=== PATIENT | female | born 1990 | race Two or more races ===

== ENCOUNTER 2018-01-23 20:57 | Emergency (ER) | payer SELFPAY ==
[~2018-01-23] VITALS: Ht 160 cm; Wt 81.6 kg
[2018-01-24 00:08] VITALS: BP 122/82
[2018-01-24] MEDS ORDERED: PHENAZOPYRIDINE HCL 100 MG TAB PO ONE (01:15)
[2018-01-24] MEDS ORDERED: cefTRIAXone SOD 1,000 MG VL IM ONE (01:15)
[2018-01-24] MEDS ORDERED: LIDOCAINE 1% (LOCAL ANESTH.) PF 5ml SDV ONE (01:20)
[2018-01-24] MEDS ORDERED: LIDOCAINE 1% HCL (LOCAL ANESTH.) INJ 20ML MDV IJ ONE (02:15)
== END 2018-01-24 01:30 | disposition home or self-care (01) ==
LOC: ER 21:18
DX: N39.0 Urinary tract infection, site not specified (principal); M79.1 Myalgia
CPT/HCPCS: 72131; 96372; 99284; J0696

== ENCOUNTER 2018-11-24 12:23 | Inpatient (IN) | payer MEDICAID | END 2018-11-28 09:25 | disposition home or self-care (01) | LOC: LDRP 12:23 | DX: O13.3 Gestational [pregnancy-induced] hypertension without significant proteinuria, third trimester (principal); J81.1 Chronic pulmonary edema; O60.03 Preterm labor without delivery, third trimester; Z3A.35 35 weeks gestation of pregnancy ==

== ENCOUNTER 2018-12-09 14:20 | Observation (INO) | payer MEDICAID ==
[~2018-12-09] VITALS: Ht 160 cm; Wt 90.7 kg
[~2018-12-09 14:20] MED LIST: PREN-96 PO
[2018-12-09] MEDS ORDERED: BISACODYL 10 MG RECT SUPP PR PRN (16:15)
== END 2018-12-09 16:40 | disposition home or self-care (01) | DRG 566 ==
LOC: LDRP 14:20
PROVIDERS: ADMIT Obstetrics & Gynecology; ATTEND Obstetrics & Gynecology
DX: O62.9 Abnormality of forces of labor, unspecified (principal); Z3A.37 37 weeks gestation of pregnancy
CPT/HCPCS: 59025; 81002; G0378

== ENCOUNTER 2023-09-08 00:40 | Emergency (ER) | payer MEDICAID ==
[~2023-09-08] VITALS: Ht 160 cm; Wt 94.0 kg
[~2023-09-08 00:40] MED LIST changes: +ACET-1881 PO
[2023-09-08 02:15] LABS: Basophils # (auto) 0 10 ^3/uL (0-0.2); Basophils % (auto) 0.5 % (0.0-2.0); Eosinophils # (auto) 0.2 10 ^3/uL (0-0.8); Eosinophils % (auto) 2.3 % (0.0-7.0); Hematocrit 38.8 % (36.0-46.0); Hemoglobin 12.8 g/dL (12.2-16.2); Lymphocytes # (auto) 2.3 10 ^3/uL (0.4-5.4); Lymphocytes % (auto) 28.1 % (10.0-50.0); Mean Corpuscular Hemoglobin 28.5 pg (28.0-32.0); Mean Corpuscular Volume 86.2 fL (80.0-100.0); Monocytes # (auto) 0.7 10 ^3/uL (0-1.3); Neutrophils # (auto) 4.8 10 ^3/uL (1.6-8.6); Neutrophils % (auto) 60.1 % (37.0-80.0); Nucleated Red Blood Cells % 0.1 %; Red Cell Distribution Width 13.8 % (11.8-14.3)
[2023-09-08 02:32] LABS: Urine Bacteria FEW /hpf (None Seen); Urine Blood Negative /uL (Negative); Urine Clarity Clear (Clear); Urine Color Light-Yellow (Yellow); Urine Protein, UAD Negative (Negative); Urine Specific Gravity 1.017 (1.001-1.035); Urine Urobilinogen Normal (Negative); Urine WBC 2 /hpf (0 - 5); Urine pH 5.5 (5.0-9.0)
[2023-09-08 02:39] LABS: Alanine Aminotransferase 25 U/L (7-40); Albumin 4.6 g/dL (3.2-4.8); Alkaline Phosphatase 93 U/L (46-116); Anion Gap 8 (5-15); Aspartate Aminotransferase 20 U/L (13-40); BUN/Creatinine Ratio 14.5 (10.0-20.0); Bilirubin, Total 0.3 mg/dL (0.2-1.0); Blood Urea Nitrogen 12 mg/dL (9-23); Calcium 9.3 mg/dL (8.7-10.4); Carbon Dioxide 23 mmol/L (20-30); Chloride 106 mmol/L (98-107); Glucose 155 mg/dL (74-106); Potassium 3.6 mmol/L (3.5-5.1); Sodium 137 mmol/L (136-145); Total Protein 7.9 g/dL (5.7-8.2)
[2023-09-08] MEDS ORDERED: CEPH500C PO (05:59)
[2023-09-08 06:33] VITALS: BP 151/74; PULSE 51; RESP 18; TEMP 98.4; O2SAT 100
== END 2023-09-08 07:27 | disposition home or self-care (01) ==
LOC: ER 00:40
DX: R10.9 Unspecified abdominal pain (principal); E11.9 Type 2 diabetes mellitus without complications; Z90.49 Acquired absence of other specified parts of digestive tract; Z32.02 Encounter for pregnancy test, result negative
CPT/HCPCS: 36415; 74176; 80053; 81001; 81025; 85025

== ENCOUNTER 2025-03-10 09:19 | Emergency (ER) | payer MEDICAID ==
[~2025-03-10] VITALS: Ht 160 cm; Wt 91.8 kg
[~2025-03-10 09:19] MED LIST changes: +CEPH500C PO
[2025-03-10 09:21] VITALS: BP 157/89; PULSE 96; RESP 19; TEMP 97.1; O2SAT 99
--- NOTE | 2025-03-10 09:57 | ED.PDOC ---
PIPE COVERER HPI Comments A 34 YEAR OLD FEMALE PRESENTS TO THE ED WITH COMPLAINT OF PELVIC PAIN. PATIENT REPORTS THAT SHE HAS BEEN EXPERIENCING LEFT SIDED PELVIC PAIN WITH ASSOCIATED NAUSEA FOR THE PAST WEEK. PATIENT RELAYS THAT SHE WAS TOLD BY AN URGENT CARE RECENTLY THAT SHE IS CURRENTLY . PATIENT STATES HER LMP WAS ON 02/02. PATIENT DENIES VAGINAL BLEEDING, SHORTNESS OF BREATH, CHEST PAIN, ABDOMINAL PAIN, NAUSEA, VOMITING, HEADACHE, OR OTHER COMPLAINTS. NO OTHER SYMPTOMS OR MODIFYING FACTORS AT THIS TIME. PATIENT IS ALERT, ORIENTED X 4, AND HAS STEADY GAIT. Chief Complaint: Pelvic Pain Time Seen by MD: 09:56 Reviewed Notes: Nurses Notes, Medications, Allergies Allergies: Coded Allergies: NO KNOWN ALLERGIES (Unverified , 01/23/18) Home Meds Active Scripts Cephalexin Monohydrate (Cephalexin) 500 Mg Cap, 1 CAP PO QID for 10 Days, #40 CAP Prov:BALDEMAR WRIGHT MD 09/08/23 Reported Medications Acetaminophen (Acetaminophen) 325 Mg Tab, 325 MG PO Q4HP PRN for MILD PAIN for 30 Days, MG 0 Refills 12/15/18 Vit W/ Ferrous Fumara ( One Daily) Daily Tab, 1 TAB PO DAILY, #90 TAB 3 Refills 11/26/18 Information Source: Patient Mode of Arrival: Ambulatory Timing: Weeks Prehospital treatment: None Severity: Mild, Moderate Vaginal Discharge: None Vaginal Lesions: None Vaginal Mass: None Onset Of Mass/Bleeding: Unknown Sexual Activity: Last Consensual [place]: Unknown History of: Current Symptoms of Possible : None Associated Signs and Symptoms: Abdominal Pain (LEFT PELVIC ), Cramping Past Medical History PAST MEDICAL HISTORY: Thyroid Surgical History: Cholecystectomy PULP TESTER History: No Pertinent PULP TESTER History Family History Family History: Unknown Social History Smoker: Non-Smoker Alcohol: Denies ETOH Use Drugs: Denies Drug Use Lives In: Home Constitutional: denies: chills, diaphoresis, fatigue, fever, malaise, sweats, weakness, others EENTM: denies: blurred vision, double vision, ear bleeding, ear discharge, ear drainage, ear pain, ear ringing, eye pain, eye redness, hearing loss, mouth pain, mouth swelling, nasal discharge, nose bleeding, nose congestion, nose pain, photophobia, tearing, throat pain, throat swelling, voice changes, others Respiratory: denies: cough, hemoptysis, orthopnea, SOB at rest, shortness of breath, SOB with excertion, stridor, wheezing, others Cardiovascular: denies: chest pain, dizzy spells, diaphoresis, Dyspnea on exertion, edema, irregular heart beat, left arm pain, lightheadedness, palpitations, PND, syncope, others Gastrointestinal: reports: nausea, others (PELVIC PAIN); denies: abdomen distended, abdominal pain, blood streaked bowels, constipated, diarrhea, dysphagia, difficulty swallowing, hematemesis, melena, poor appetite, poor fluid intake, rectal bleeding, rectal pain, vomiting Genitourinary: reports: ; denies: abnormal vagina bleeding, burning, dyspareunia, dysuria, flank pain, frequency, hematuria, incontinence, pain, vagina discharge, urgency, others Neurological: denies: dizziness, fainting, headache, left sided numbness, left sided weakness, numbness, paresthesia, pre-existing deficit, right sided numbness, right sided weakness, seizure, speech problems, tingling, tremors, weakness, others Musculoskeletal: denies: back pain, gout, joint pain, joint swelling, muscle pain, muscle stiffness, neck pain, others Integumetry: denies: bruises, change in color, change in hair/nails, dryness, laceration, lesions, lumps, rash, wounds, others Allergic/Immunocompromised: denies: Difficulty Healing, Frequent Infections, Hives, Itching, others Hematologic/Lymphatic: denies: anemia, blood clots, easy bleeding, easy bruising, swollen glands, others Endocrine: denies: excessive hunger, excessive sweating, excessive thirst, excessive urination, flushing, intolerance to cold, intolerance to heat, unexplained weight gain, unexplained weight loss, others Psychiatric: denies: anxiety, bipolar disorder, depression, hopeless, panic disorder, schizophrenia, sleepless, suicidal, others All Other Systems: Reviewed and Negative Physical Exam General Appearance: No Apparent Distress, Normal HEENT: Normal ENT Inspection, PERRL/EOMI, Pharynx Normal, TMs Normal Neck: Full Range of Motion, Non-Tender, Normal, Normal Inspection Respiratory: Chest Non-Tender, Lungs Clear, No Accessory Muscle Use, No Respiratory Distress, Normal Breath Sounds Cardiovascular: No Edema, No JVD, No Murmur, No Gallop, Normal Peripheral Pulses, Regular Rate/Rhythm Breast Exam: Deferred Gastrointestinal: No Organomegaly, Non Tender, No Pulsatile Mass, Normal Bowel Sounds, Soft Genitalia: Deferred Pelvic: Normal External Exam, Tender Adnexa (TENDERNESS ON LEFT PELVIC, NO GUARDING AND REBOUND TENDERNESS. ) Rectal: Deferred Extremities: No calf tenderness, Normal capillary refill, Normal inspection, Normal range of motion, Non-tender, No pedal edema Musculoskeletal : Apperance: Normal Neurologic: Alert, venue coordinator II-XII nml as Tested, No Motor Deficits, Normal Affect, Normal Mood, No Sensory Deficits Cerebellar Function: Normal Reflexes: Normal Skin: Dry, Normal Color, Warm Peripheral Pulses: 2+ carotid (R), 2+ carotid (L), 2+ Radial (R), 2+ Radial (L) Lymphatic: No Adenopathy Was a procedure done? Was a procedure done?: No Differential Diagnosis (PULP TESTER) Vaginal Bleeding: - Threatened, Ectopic Vaginal Discharge: , UTI X-Ray, Labs, Meds, VS Vital Signs Date Time Temp Pulse Resp B/P (MAP) Pulse Ox O2 Delivery O2 Flow Rate FiO2 03/10/25 09:21 97.1 96 19 157/89 99 97.1 Lab Test 03/10/25 09:42 Range/Units White Blood Count 6.0 4.4-10.8 10^3/uL Red Blood Count 4.67 4.0-5.20 10^6/uL Hemoglobin 13.4 12.2-16.2 g/dL Hematocrit 40.3 36.0-46.0 % Mean Corpuscular Volume 86.2 80.0-100.0 fL Mean Corpuscular Hemoglobin 28.8 28.0-32.0 pg Mean Corpuscular Hemoglobin Concent 33.4 32.0-36.0 g/dL Red Cell Distribution Width 14.0 11.8-14.3 % Platelet Count 238 140-450 10^3/uL Mean Platelet Volume 8.6 6.9-10.8 fL Neutrophils (%) (Auto) 57.9 37.0-80.0 % Lymphocytes (%) (Auto) 31.5 10.0-50.0 % Monocytes (%) (Auto) 9.4 0.0-12.0 % Eosinophils (%) (Auto) 0.8 0.0-7.0 % Basophils (%) (Auto) 0.4 0.0-2.0 % Neutrophils # (Auto) 3.5 1.6-8.6 10 ^3/uL Lymphocytes # (Auto) 1.9 0.4-5.4 10 ^3/uL Monocytes # (Auto) 0.6 0-1.3 10 ^3/uL Eosinophils # (Auto) 0 0-0.8 10 ^3/uL Basophils # (Auto) 0 0-0.2 10 ^3/uL Nucleated Red Blood Cells 0.1 % Beta HCG, Quantitative 386.1 H 1.5-4.2 mIU/mL [facility] [id number] [place] [address] Ph: [phone] DIAGNOSTIC IMAGING Diagnostic Imaging Report : [id number] Signed PATIENT: KYM FELIX ACCT: [id number] UNIT: [id number] : 1990 LOC: ER ROOM / BED: / AGE / SEX: 34 / F ADM STATUS: REG ER SERVICE 1029 ORDERING PHYSICIAN: YESICA MARTINEZ PROCEDURE(s): OB4US - OB ULTRASOUND COMP LESS 14WKS REASON: LEFT PELVIC PAIN, BETA-HC, R/O ATOPIC ORDER NUMBER(s): [id number], ACCESSION NUMBER(s): [id number] US OB ULTRASOUND COMP LESS 14WKS HISTORY: LEFT PELVIC PAIN, BETA-HC, R/O ATOPIC COMPARISON: US OB TRANS VAGINAL US on DOS: 03/10/25, OB ULTRASOUND COMP GTR 14 WKS on DOS: 11/24/18 TECHNIQUE: Transabdominal and transvaginal images with color doppler were obtained of the pelvis. FINDINGS: Uterus: - Measures 11.4 x 5.3 x 7.0 cm in length. - Mass lesions: None - Intrauterine : Not visualized. - Gestational sac: Not visualized. - Yolk sac: Not visualized. - Embryonic pole: Not visualized. - Endometrium: 2.3 cm. Right ovary: - Measures 4.2 x 2.3 x 2.7 cm - Vascularity: Normal flow on Doppler images. - Mass lesions: None Left ovary: - Measures 6.1 x 2.8 x 4.1 cm - Vascularity: Normal flow on Doppler images. - Mass lesions: 1.9 x 1.8 x 2.2 cm complex heterogeneous lesion in the left ovary with peripheral vascularity. 3.2 x 2.4 x 2.6 cm cyst. Free fluid: Yes Other: None IMPRESSION: 1.9 x 1.8 x 2.2 cm complex heterogeneous lesion in the left ovary with peripheral vascularity. This could be a left ovarian ectopic vs a corpus luteal cyst. Reccommend PIPE COVERER consultation. No live intrauterine visualized. ATED BY: KVNG AMEZCUA MD DICTATED DATE/TIME: 03/10/251111 SIGNED BY: KVNG AMEZCUA MD SIGNED DATE/TIME: 03/10/251111 CC: X-Ray, Labs, Meds, VS Comment EXTERNAL MEDICAL RECORDS REVIEWED: [NONE] INDEPENDENT HISTORIANS: [NONE] SOCIAL DETERMINANTS OF HEALTH: [NONE] LABS ORDERED: CBC, UA, BHCG QUANT, PREG URINE REVIEWED AND INTERPRETED RESULTS: BETA-HC IMAGING ORDERED: NONE TREATMENTS ORDERED: NONE PROCEDURES PERFORMED: NONE CRITICAL CARE TIME: NONE 1135: CONSULTED WITH DR. PARRA PIPE COVERER REGARDING THE PATIENT CASE AND SHE ADVISED THAT SHE WILL SPEAK WITH THE WOOD COATER WHO PERFORMED THE US. 1140: DR. PARRA REPORTS THAT THE PATIENT DOES NOT HAVE AN ECTOPIC AND HER US SHOWS A CORPUS LUTEAL CYST. DR. PARRA ADVISES THAT THE PATIENT RETURN IN 2 DAYS TO THE ED FOR REPEAT US AND BHCG QUANT. I HAVE DISCUSSED THE PATIENT WITH THE ATTENDING PHYSICIAN, DR. RUTH, HE AGREES WITH THE PATIENT'S PLAN OF CARE AND DISPOSITION. BASED ON HISTORY OF PRESENT ILLNESS, AND PHYSICAL EXAM, PATIENT WILL BE DISCHARGED HOME. DISCUSSED PLAN FOR DISCHARGE HOME. SHARED DECISION MAKING: DISCUSSED WITH PATIENT THAT THEIR WORKUP WAS NORMAL. PATIENT INSTRUCTED TO FOLLOW UP WITH ER/PRIMARY CARE PROVIDER IN 1-2 DAYS FOR RE-EVALUATION OF SYMPTOMS. PATIENT VERBALIZES UNDERSTANDING TO RETURN TO ED FOR NEW OR WORSENING SYMPTOMS OR IF FOLLOW UP WITH PCP CANNOT BE OBTAINED. PATIENT FEELS COMFORTABLE GOING HOME AT THIS TIME. ALL QUESTIONS ADDRESSED AT TIME OF DISCHARGE. Time of 1ST Reevaluation: 12:30 Reevaluation 1ST: Improved Patient Education/Counseling: Diagnosis, Treatment, Need For Follow Up Family Education/Counseling: Diagnosis, Treatment, Need For Follow Up Medical Screening: No EMC Exist At This Time Departure 1 Departure Time of Disposition: 12:30 Impression: Primary Impression: Pelvic pain Additional Impressions: Corpus luteum cyst Positive blood test Disposition: HOME / SELF CARE / HOMELESS Condition: Stable Additional Instructions: FOLLOW-UP WITH THE ED IN 2 DAYS FOR RE-CHECK OF BHCG LEVELS AND US. RETURN TO ED FOR ANY NEW OR WORSENING SYMPTOMS. Discharged With: Self, Relative Critical Care Note Critical Care Time?: No Stability Stability form required: No Heart Score Heart Score: Heart Score Response (Comments) Value History N/A 0 EKG N/A 0 Age N/A 0 Risk Factors N/A 0 Troponin N/A 0 Total 0 I personally scribed for YESICA MARTINEZ ([email or web address]) on 03/10/25 at 09:57. Electronically submitted by Cruz Smith ([email or web address]). I personally scribed for YESICA MARTINEZ ([email or web address]) on 03/10/25 at 11:27. Electronically submitted by Cruz Smith ([email or web address]). I personally scribed for YESICA MARTINEZ ([email or web address]) on 03/10/25 at 11:36. Electronically submitted by Cruz Smith ([email or web address]). I personally scribed for YESICA MARTINEZ ([email or web address]) on 03/10/25 at 11:41. Electronically submitted by Cruz Smith ([email or web address]). YESICA MARTINEZ Mar 10, 2025 09:57
[2025-03-10 09:58] LABS: Hematocrit 40.3 % (36.0-46.0); Hemoglobin 13.4 g/dL (12.2-16.2); Mean Corpuscular Hemoglobin 28.8 pg (28.0-32.0); Mean Corpuscular Volume 86.2 fL (80.0-100.0); Nucleated Red Blood Cells % 0.1 %
--- NOTE | 2025-03-10 11:14 | DVH ---
US OB ULTRASOUND COMP LESS 14WKS HISTORY: LEFT PELVIC PAIN, BETA-HC, R/O ATOPIC COMPARISON: US OB TRANS VAGINAL US on DOS: 03/10/25, OB ULTRASOUND COMP GTR 14 WKS on DOS: 11/24/18 TECHNIQUE: Transabdominal and transvaginal images with color doppler were obtained of the pelvis. FINDINGS: Uterus: - Measures 11.4 x 5.3 x 7.0 cm in length. - Mass lesions: None - Intrauterine : Not visualized. - Gestational sac: Not visualized. - Yolk sac: Not visualized. - Embryonic pole: Not visualized. - Endometrium: 2.3 cm. Right ovary: - Measures 4.2 x 2.3 x 2.7 cm - Vascularity: Normal flow on Doppler images. - Mass lesions: None Left ovary: - Measures 6.1 x 2.8 x 4.1 cm - Vascularity: Normal flow on Doppler images. - Mass lesions: 1.9 x 1.8 x 2.2 cm complex heterogeneous lesion in the left ovary with peripheral vas cularity. 3.2 x 2.4 x 2.6 cm cyst. Free fluid: Yes Other: None IMPRESSION: 1.9 x 1.8 x 2.2 cm complex heterogeneous lesion in the left ovary with peripheral vascularity. This c ould be a left ovarian ectopic vs a corpus luteal cyst. Reccommend CERTIFIED MEDICAL ASST consultation. No live intrauterine visualized.
[2025-03-10 13:26] LABS: Urine Protein, UAD Negative (Negative)
== END 2025-03-10 13:03 | disposition home or self-care (01) ==
LOC: ER 09:19
DX: O26.899 Other specified pregnancy related conditions, unspecified trimester (principal); N83.10 Corpus luteum cyst of ovary, unspecified side; O26.891 Other specified pregnancy related conditions, first trimester; R10.20 Pelvic and perineal pain unspecified side; E03.9 Hypothyroidism, unspecified; Z79.899 Other long term (current) drug therapy; Z3A.01 Less than 8 weeks gestation of pregnancy; Z90.49 Acquired absence of other specified parts of digestive tract
CPT/HCPCS: 36415; 76801; 76817; 81001; 81025; 84702; 85025

== ENCOUNTER 2025-03-13 17:06 | Emergency (ER) | payer MEDICAID ==
[~2025-03-13] VITALS: Ht 160 cm; Wt 99.9 kg
[2025-03-13 18:51] LABS: Hematocrit 36.5 % (36.0-46.0); Hemoglobin 12.5 g/dL (12.2-16.2); Mean Corpuscular Hemoglobin 29.4 pg (28.0-32.0); Mean Corpuscular Volume 85.7 fL (80.0-100.0); Nucleated Red Blood Cells % 0.0 %
[2025-03-13 19:01] LABS: Alanine Aminotransferase 34 U/L (7-40); Albumin 4.5 g/dL (3.2-4.8); Alkaline Phosphatase 95 U/L (46-116); Anion Gap 9 (5-15); BUN/Creatinine Ratio 11.9 (10.0-20.0); Bilirubin, Total 0.3 mg/dL (0.2-1.0); Blood Urea Nitrogen 10 mg/dL (9-23); Calcium 9.5 mg/dL (8.7-10.4); Carbon Dioxide 25 mmol/L (20-31); Chloride 104 mmol/L (98-107); Glucose 108 mg/dL (74-106); Potassium 3.8 mmol/L (3.5-5.1); Sodium 138 mmol/L (136-145); Total Protein 7.8 g/dL (5.7-8.2)
--- NOTE | 2025-03-13 19:02 | ED.PDOC ---
ORCHARD MANAGER HPI Comments 34-year-old female who came to ER for abdominal pain. Patient is a ap proximately 4-5 weeks . Patient was seen here last March 10, abdominal pain, left lower quadrant. Ultrasound revealed 1.9 x 1.8 x 2.2 cm complex heterogeneous lesion in the left ovary with peripheral vascularity. This could be a left ovarian ectopic vs a corpus luteal cyst. Reccommend ORCHARD MANAGER consultation. No live intrauterine visualized. Patient coming in for repeat bhcg levels and ultrasound Chief Complaint: Abdominal Pain Time Seen by MD: 19:02 Reviewed Notes: Nurses Notes Allergies: Coded Allergies: NO KNOWN ALLERGIES (Unverified , 01/23/18) Home Meds Active Scripts Cephalexin Monohydrate (Cephalexin) 500 Mg Cap, 1 CAP PO QID for 10 Days, #40 CAP Prov:BALDEMAR WRIGHT MD 09/08/23 Reported Medications Acetaminophen (Acetaminophen) 325 Mg Tab, 325 MG PO Q4HP PRN for MILD PAIN for 30 Days, MG 0 Refills 12/15/18 Vit W/ Ferrous Fumara ( One Daily) Daily Tab, 1 TAB PO DAILY, #90 TAB 3 Refills 11/26/18 Information Source: Patient Mode of Arrival: Ambulatory Past Medical History PAST MEDICAL HISTORY: Thyroid Surgical History: Cholecystectomy MEDICAL RESEARCHER History: No Pertinent MEDICAL RESEARCHER History 4 Para 2 Family History Family History: Unknown Social History Smoker: Non-Smoker Alcohol: Denies ETOH Use Drugs: Denies Drug Use Lives In: Home Constitutional: denies: chills, diaphoresis, fatigue, fever, malaise, sweats, weakness, others EENTM: denies: blurred vision, double vision, ear bleeding, ear discharge, ear drainage, ear pain, ear ringing, eye pain, eye redness, hearing loss, mouth pain, mouth swelling, nasal discharge, nose bleeding, nose congestion, nose pain, photophobia, tearing, throat pain, throat swelling, voice changes, others Respiratory: denies: cough, hemoptysis, orthopnea, SOB at rest, shortness of breath, SOB with excertion, stridor, wheezing, others Cardiovascular: denies: chest pain, dizzy spells, diaphoresis, Dyspnea on exertion, edema, irregular heart beat, left arm pain, lightheadedness, palpitations, PND, syncope, others Gastrointestinal: reports: abdominal pain; denies: abdomen distended, blood streaked bowels, constipated, diarrhea, dysphagia, difficulty swallowing, hematemesis, melena, nausea, poor appetite, poor fluid intake, rectal bleeding, rectal pain, vomiting, others Genitourinary: denies: abnormal vagina bleeding, burning, dyspareunia, dysuria, flank pain, frequency, hematuria, incontinence, pain, , vagina discharge, urgency, others Neurological: denies: dizziness, fainting, headache, left sided numbness, left sided weakness, numbness, paresthesia, pre-existing deficit, right sided numbness, right sided weakness, seizure, speech problems, tingling, tremors, weakness, others Musculoskeletal: denies: back pain, gout, joint pain, joint swelling, muscle pain, muscle stiffness, neck pain, others Integumetry: denies: bruises, change in color, change in hair/nails, dryness, laceration, lesions, lumps, rash, wounds, others Allergic/Immunocompromised: denies: Difficulty Healing, Frequent Infections, Hives, Itching, others Hematologic/Lymphatic: denies: anemia, blood clots, easy bleeding, easy bruising, swollen glands, others Endocrine: denies: excessive hunger, excessive sweating, excessive thirst, excessive urination, flushing, intolerance to cold, intolerance to heat, unexplained weight gain, unexplained weight loss, others Psychiatric: denies: anxiety, bipolar disorder, depression, hopeless, panic disorder, schizophrenia, sleepless, suicidal, others Physical Exam General Appearance: No Apparent Distress, Normal HEENT: Normal ENT Inspection, Pharynx Normal, TMs Normal Neck: Full Range of Motion, Non-Tender, Normal, Normal Inspection Respiratory: Chest Non-Tender, Lungs Clear, No Accessory Muscle Use, No Respiratory Distress, Normal Breath Sounds Cardiovascular: No Edema, No JVD, No Murmur, No Gallop, Normal Peripheral Pulses, Regular Rate/Rhythm Breast Exam: Deferred Gastrointestinal: LLQ, No Organomegaly, No Pulsatile Mass, Normal Bowel Sounds, Soft, Tenderness Genitalia: Deferred Pelvic: Deferred Rectal: Deferred Extremities: No calf tenderness, Normal capillary refill, Normal inspection, Normal range of motion, Non-tender, No pedal edema Musculoskeletal : Apperance: Normal Neurologic: Alert, air pumper II-XII nml as Tested, No Motor Deficits, Normal Affect, Normal Mood, No Sensory Deficits Cerebellar Function: Normal Reflexes: Normal Skin: Dry, Normal Color, Warm Lymphatic: No Adenopathy Was a procedure done? Was a procedure done?: No Differential Diagnosis (MEDICAL RESEARCHER) Vaginal Bleeding: - Missed, - Threatened, Ectopic Vaginal Discharge: X-Ray, Labs, Meds, VS Vital Signs Date Time Temp Pulse Resp B/P (MAP) Pulse Ox O2 Delivery O2 Flow Rate FiO2 03/13/25 22:27 Room Air* 0 21 03/13/25 20:16 99.4 93 18 138/86 (103) 99 99.4 03/13/25 17:08 98.7 96 18 130/92 96 98.7 Lab Test 03/13/25 18:36 03/13/25 18:33 Range/Units White Blood Count 8.4 # 4.4-10.8 10^3/uL Red Blood Count 4.26 4.0-5.20 10^6/uL Hemoglobin 12.5 12.2-16.2 g/dL Hematocrit 36.5 36.0-46.0 % Mean Corpuscular Volume 85.7 80.0-100.0 fL Mean Corpuscular Hemoglobin 29.4 28.0-32.0 pg Mean Corpuscular Hemoglobin Concent 34.3 32.0-36.0 g/dL Red Cell Distribution Width 13.8 11.8-14.3 % Platelet Count 211 140-450 10^3/uL Mean Platelet Volume 8.7 6.9-10.8 fL Neutrophils (%) (Auto) 61.1 37.0-80.0 % Lymphocytes (%) (Auto) 27.8 10.0-50.0 % Monocytes (%) (Auto) 9.9 0.0-12.0 % Eosinophils (%) (Auto) 1.0 0.0-7.0 % Basophils (%) (Auto) 0.2 0.0-2.0 % Neutrophils # (Auto) 5.1 1.6-8.6 10 ^3/uL Lymphocytes # (Auto) 2.3 0.4-5.4 10 ^3/uL Monocytes # (Auto) 0.8 0-1.3 10 ^3/uL Eosinophils # (Auto) 0.1 0-0.8 10 ^3/uL Basophils # (Auto) 0 0-0.2 10 ^3/uL Nucleated Red Blood Cells 0.0 % Sodium Level 138 136-145 mmol/L Potassium Level 3.8 3.5-5.1 mmol/L Chloride Level 104 98-107 mmol/L Carbon Dioxide Level 25 20-31 mmol/L Anion Gap 9 5-15 Blood Urea Nitrogen 10 9-23 mg/dL Creatinine 0.84 0.550-1.02 mg/dL Glomerular Filtration Rate Calc 93 >90 mL/min BUN/Creatinine Ratio 11.9 10.0-20.0 Serum Glucose 108 H 74-106 mg/dL Calcium Level 9.5 8.7-10.4 mg/dL Total Bilirubin 0.3 0.2-1.0 mg/dL Aspartate Amino Transferase (AST) 22 13-40 U/L Alanine Aminotransferase (ALT) 34 7-40 U/L Alkaline Phosphatase 95 46-116 U/L Total Protein 7.8 5.7-8.2 g/dL Albumin 4.5 3.2-4.8 g/dL Beta HCG, Quantitative 917.9 H 1.5-4.2 mIU/mL Urine Color Light-yellow Yellow Urine Clarity Clear Clear Urine pH 6.5 5.0-9.0 Urine Specific [place] 1.022 1.001-1.035 Urine Protein Negative Negative Urine Ketones Negative Negative Urine Blood Negative Negative /uL Urine Nitrite Negative Negative Urine Bilirubin Negative Negative Urine Urobilinogen Normal Negative mg/dL Urine Leukocyte Esterase 3+ Negative /uL Urine RBC 3 0 - 4 /hpf Urine Microscopic WBC 8 H 0-5 /HPF Urine Squamous Epithelial Cells Few <5 /hpf Urine Bacteria None seen None Seen /hpf Urine Mucus Few None Seen Urine Glucose Normal Normal mg/dL Time of 1ST Reevaluation: 19:00 Reevaluation 1ST: Unchanged Consultation: manufactured buildings supervisor (Dr Cota) Patient Education/Counseling: Diagnosis, Treatment Family Education/Counseling: No Family Present Departure 1 Departure Time of Disposition: 11:00 Impression: Primary Impression: Encounter for assessment for suspected ectopic Additional Impression: Positive blood test Disposition: HOME / SELF CARE / HOMELESS Condition: Stable Discharged With: Self Comments I consulted with who recommends outpatient management with close follow up. Patient is agreeable with the plan. Critical Care Note Critical Care Time?: No Stability Stability form required: No Heart Score Heart Score: Heart Score Response (Comments) Value History N/A 0 EKG N/A 0 Age N/A 0 Risk Factors N/A 0 Troponin N/A 0 Total 0 I personally scribed for PINO BELL MD ([email or web address]) on 03/13/25 at 19:02. Electronically submitted by Chavo Rojas ([email or web address]). PINO BELL MD Mar 13, 2025 19:02
[2025-03-13 19:17] LABS: Urine Protein, UAD Negative (Negative)
[2025-03-13 20:16] VITALS: BP 138/86; PULSE 93; RESP 18; TEMP 99.4; O2SAT 99
--- NOTE | 2025-03-13 20:20 | DVH ---
Procedure: US OB ULTRASOUND COMP LESS 14WKS Study Date and Requested Time: 03/13/2025 07:07 PM Study Description: US OB ULTRASOUND COMP LESS 14WKS History: LLQ pain Comparison: US OB ULTRASOUND COMP LESS 14WKS on DOS: 03/10/25 Technique: Multiple high resolution gaytan-scale images obtained of the uterus, fetus, and other gestat ional components with M-mode scanning for evaluation of heart rate. Findings: 0.3 x 0.2 x 0.2 cm intrauterine sonolucent area with no yolk sac or pole visualized. Estimated gestational age GA based on parameters. Uterus measures 11.7 x 5.8 x 7.1 cm in size with Thickened endometrium at 3.6 cm. Cervical os appears closed. Right ovary measures 3.2 x 2.2 x 2.6 cm. Left ovary measures 4.4 x 2.4 x 3.8 cm with a complex 2.3 x 1.6 x 2.5 cm lesion with peripheral vascularity and a simple 2.9 x 2.2 x 2.8 cm cyst. Normal ovarian color Doppler flow bilaterally. Small amount of free fluid within the cul-de-sac. Impression: Thickened endometrium with 0.3 x 0.2 x 0.2 cm intrauterine sonolucent area. Question possible early gestational sac. An ectopic can not be excluded given complex 2.3 x 1.6 x 2.5 cm left ovari an lesion with peripheral vascularity. Recommend OBGYN consultation and correlation with beta HCG a nd ultrasound as clinically indicated.
== END 2025-03-13 22:26 | disposition home or self-care (01) ==
LOC: ER 17:06
DX: O00.80 Other ectopic pregnancy without intrauterine pregnancy (principal); Z03.79 Encounter for other suspected maternal and fetal conditions ruled out; Z32.01 Encounter for pregnancy test, result positive; Z3A.01 Less than 8 weeks gestation of pregnancy; Z90.49 Acquired absence of other specified parts of digestive tract
CPT/HCPCS: 36415; 76801; 76817; 80053; 81001; 84702; 85025

== ENCOUNTER 2025-03-15 08:25 | Emergency (ER) | payer MEDICAID ==
[~2025-03-15] VITALS: Ht 160 cm; Wt 65.7 kg
--- NOTE | 2025-03-15 09:16 | ED.PDOC ---
CLINICAL SERVICES MANAGER HPI Comments 34 year old female presents to the ED with a chief complaint of pelvic pain onset 10 days. Patient states she is currently 5 weeks , P:2 A:1, OBGYN Dr. Brown. Patient has been experiencing pelvic pain for the past 10 days, was seen in this ED 2 days ago, was told to return in 2 days for HCG level repeat. Ultrasound revealed 1.9 x 1.8 x 2.2 cm complex heterogeneous lesion in the left ovary with peripheral vascularity. This could be a left ovarian ectopic vs a corpus luteal cyst. PMHx ectopic . Denies fever, chills, vaginal bleeding, dysuria, hematuria, dizziness, headache, nausea, vomiting, diarrhea. No other symptoms or modifying factors present at this time. Chief Complaint: Pelvic Pain Time Seen by MD: 09:10 Reviewed Notes: Medications, Allergies Allergies: Coded Allergies: NO KNOWN ALLERGIES (Unverified , 01/23/18) Home Meds Active Scripts Cephalexin Monohydrate (Cephalexin) 500 Mg Cap, 1 CAP PO QID for 10 Days, #40 CAP Prov:BALDEMAR WRIGHT MD 09/08/23 Reported Medications Acetaminophen (Acetaminophen) 325 Mg Tab, 325 MG PO Q4HP PRN for MILD PAIN for 30 Days, MG 0 Refills 12/15/18 Vit W/ Ferrous Fumara ( One Daily) Daily Tab, 1 TAB PO DAILY, #90 TAB 3 Refills 11/26/18 Information Source: Patient Mode of Arrival: Ambulatory Timing: Days Prehospital treatment: None Severity: Moderate Vaginal Discharge: None Vaginal Lesions: None Vaginal Mass: None Associated Signs and Symptoms: Other Past Medical History PAST MEDICAL HISTORY: Thyroid Surgical History: Cholecystectomy ADULT PAROLE OFFICER History: Ectopic Family History Family History: Unknown Social History Smoker: Non-Smoker Alcohol: Denies ETOH Use Drugs: Denies Drug Use Lives In: Home Constitutional: denies: chills, diaphoresis, fatigue, fever, malaise, sweats, weakness, others EENTM: denies: blurred vision, double vision, ear bleeding, ear discharge, ear drainage, ear pain, ear ringing, eye pain, eye redness, hearing loss, mouth pain, mouth swelling, nasal discharge, nose bleeding, nose congestion, nose pain, photophobia, tearing, throat pain, throat swelling, voice changes, others Respiratory: denies: cough, hemoptysis, orthopnea, SOB at rest, shortness of breath, SOB with excertion, stridor, wheezing, others Cardiovascular: denies: chest pain, dizzy spells, diaphoresis, Dyspnea on exertion, edema, irregular heart beat, left arm pain, lightheadedness, palpitations, PND, syncope, others Gastrointestinal: denies: abdomen distended, abdominal pain, blood streaked bowels, constipated, diarrhea, dysphagia, difficulty swallowing, hematemesis, melena, nausea, poor appetite, poor fluid intake, rectal bleeding, rectal pain, vomiting, others Genitourinary: reports: pain (pelvic), ; denies: abnormal vagina bleeding, burning, dyspareunia, dysuria, flank pain, frequency, hematuria, incontinence, vagina discharge, urgency, others Neurological: denies: dizziness, fainting, headache, left sided numbness, left sided weakness, numbness, paresthesia, pre-existing deficit, right sided numbness, right sided weakness, seizure, speech problems, tingling, tremors, weakness, others Musculoskeletal: denies: back pain, gout, joint pain, joint swelling, muscle pain, muscle stiffness, neck pain, others Integumetry: denies: bruises, change in color, change in hair/nails, dryness, laceration, lesions, lumps, rash, wounds, others Allergic/Immunocompromised: denies: Difficulty Healing, Frequent Infections, Hives, Itching, others Hematologic/Lymphatic: denies: anemia, blood clots, easy bleeding, easy bruising, swollen glands, others Endocrine: denies: excessive hunger, excessive sweating, excessive thirst, excessive urination, flushing, intolerance to cold, intolerance to heat, unexplained weight gain, unexplained weight loss, others Psychiatric: denies: anxiety, bipolar disorder, depression, hopeless, panic disorder, schizophrenia, sleepless, suicidal, others All Other Systems: Reviewed and Negative Physical Exam General Appearance: No Apparent Distress, Normal HEENT: Normal ENT Inspection, Pharynx Normal, TMs Normal Neck: Full Range of Motion, Non-Tender, Normal, Normal Inspection Respiratory: Chest Non-Tender, Lungs Clear, No Accessory Muscle Use, No Respiratory Distress, Normal Breath Sounds Cardiovascular: No Edema, No JVD, No Murmur, No Gallop, Normal Peripheral Pulses, Regular Rate/Rhythm Breast Exam: Deferred Gastrointestinal: No Organomegaly, Non Tender, No Pulsatile Mass, Normal Bowel Sounds, Soft Genitalia: Deferred Pelvic: Deferred Rectal: Deferred Extremities: No calf tenderness, Normal capillary refill, Normal inspection, Normal range of motion, Non-tender, No pedal edema Musculoskeletal : Apperance: Normal Neurologic: Alert, crop research scientist II-XII nml as Tested, No Motor Deficits, Normal Affect, Normal Mood, No Sensory Deficits Cerebellar Function: Normal Reflexes: Normal Skin: Dry, Normal Color, Warm Lymphatic: No Adenopathy Was a procedure done? Was a procedure done?: No Differential Diagnosis (ADULT PAROLE OFFICER) Vaginal Bleeding: - Threatened, Dysmenorrhea Mass / Lesion: N/A Vaginal Discharge: N/A X-Ray, Labs, Meds, VS Vital Signs Date Time Temp Pulse Resp B/P (MAP) Pulse Ox O2 Delivery O2 Flow Rate FiO2 03/15/25 08:50 97.5 98 19 143/83 (103) 98 97.5 03/15/25 08:42 Room Air* 0 21 03/15/25 08:27 97.5 95 19 143/83 98 97.5 Lab Test 03/15/25 09:13 Range/Units White Blood Count 6.8 4.4-10.8 10^3/uL Red Blood Count 4.30 4.0-5.20 10^6/uL Hemoglobin 12.4 12.2-16.2 g/dL Hematocrit 37.1 36.0-46.0 % Mean Corpuscular Volume 86.2 80.0-100.0 fL Mean Corpuscular Hemoglobin 28.7 28.0-32.0 pg Mean Corpuscular Hemoglobin Concent 33.3 32.0-36.0 g/dL Red Cell Distribution Width 13.6 11.8-14.3 % Platelet Count 212 140-450 10^3/uL Mean Platelet Volume 8.5 6.9-10.8 fL Neutrophils (%) (Auto) 66.1 37.0-80.0 % Lymphocytes (%) (Auto) 24.5 10.0-50.0 % Monocytes (%) (Auto) 8.3 0.0-12.0 % Eosinophils (%) (Auto) 0.8 0.0-7.0 % Basophils (%) (Auto) 0.3 0.0-2.0 % Neutrophils # (Auto) 4.5 1.6-8.6 10 ^3/uL Lymphocytes # (Auto) 1.7 0.4-5.4 10 ^3/uL Monocytes # (Auto) 0.6 0-1.3 10 ^3/uL Eosinophils # (Auto) 0.1 0-0.8 10 ^3/uL Basophils # (Auto) 0 0-0.2 10 ^3/uL Nucleated Red Blood Cells 0.0 % Sodium Level 139 136-145 mmol/L Potassium Level 3.5 3.5-5.1 mmol/L Chloride Level 105 98-107 mmol/L Carbon Dioxide Level 25 20-31 mmol/L Anion Gap 9 5-15 Blood Urea Nitrogen 8 L 9-23 mg/dL Creatinine 0.75 0.550-1.02 mg/dL Glomerular Filtration Rate Calc 106 >90 mL/min BUN/Creatinine Ratio 10.7 10.0-20.0 Serum Glucose 116 H 74-106 mg/dL Calcium Level 9.0 8.7-10.4 mg/dL Beta HCG, Quantitative 1609.2 H 1.5-4.2 mIU/mL Time of 1ST Reevaluation: 09:40 Reevaluation 1ST: Unchanged Patient Education/Counseling: Diagnosis, Treatment, Prognosis Family Education/Counseling: No Family Present Departure 1 Departure Time of Disposition: 11:56 (Patient likely with threatened miscarriage. P atient's ultrasound shows a corpus luteal cyst and no sign of ectopic ) Impression: Primary Impression: Supervision of normal Disposition: 01 HOME / SELF CARE / HOMELESS Condition: Stable Referrals: SHERI PARRA DO Additional Instructions: You have a threatened miscarriage. Your beta hcg level today was 1609. Your ultrasound showed a gestational sac in the uterus. You should follow up with OBGYN within three days to recheck your blood work. If your symptoms worsen or you have any other concerns then please return to the ER. Discharged With: Self Critical Care Note Critical Care Time?: No Stability Stability form required: No Heart Score Heart Score: Heart Score Response (Comments) Value History N/A 0 EKG N/A 0 Age N/A 0 Risk Factors N/A 0 Troponin N/A 0 Total 0 I personally scribed for RAJIV MORGAN MD ([email or web address]) on 03/15/25 at 09:16. Electronically submitted by Concepción Cabral ([email or web address]). RAJIV MORGAN MD Mar 15, 2025 09:16
[2025-03-15 09:23] LABS: Hematocrit 37.1 % (36.0-46.0); Hemoglobin 12.4 g/dL (12.2-16.2); Mean Corpuscular Hemoglobin 28.7 pg (28.0-32.0); Mean Corpuscular Volume 86.2 fL (80.0-100.0); Nucleated Red Blood Cells % 0.0 %
[2025-03-15 09:32] LABS: Chloride 105 mmol/L (98-107); Sodium 139 mmol/L (136-145)
[2025-03-15 09:33] LABS: Anion Gap 9 (5-15); Carbon Dioxide 25 mmol/L (20-31)
[2025-03-15 09:34] LABS: Calcium 9.0 mg/dL (8.7-10.4)
[2025-03-15 09:38] LABS: BUN/Creatinine Ratio 10.7 (10.0-20.0)
[2025-03-15 09:39] LABS: Blood Urea Nitrogen 8 mg/dL (9-23); Glucose 116 mg/dL (74-106); Potassium 3.5 mmol/L (3.5-5.1)
--- NOTE | 2025-03-15 11:48 | DVH ---
OB ULTRASOUND <14 WEEKS: HISTORY: abdominal pain and vaginal bleeding TECHNIQUE: Multiple real-time grayscale sonographic images of the pelvis with duplex Doppler color f low, spectral and M-mode analysis. TRANSDUCERS: Transabdominal and transvaginal FINDINGS: The uterus measures 11.6 x 6.1 x 6.9 cm. The cervix not well visualized Right ovary measures 3.6 x 2.2 x 3.3 cm with normal Doppler color flow Left ovary measures 4.8 x 3.0 x 5.0 cm with normal Doppler color flow. There is suggestion of a left hemorrhagic corpus luteal cyst measuring 2.7 cm. Anechoic structure measuring 0.5 cm in the endometrium in the uterine fundus may represent a gestatio nal sac. IMPRESSION: Anechoic structure measuring 0.5 cm in the endometrium in the uterine fundus may represent a gestatio nal sac. Correlate with beta HCG and short-term follow-up pelvic ultrasound. There is suggestion of a left hemorrhagic corpus luteal cyst measuring 2.7 cm.
[2025-03-15 12:13] VITALS: BP 127/87; PULSE 96; RESP 13; TEMP 97.9; O2SAT 96
== END 2025-03-15 12:15 | disposition home or self-care (01) ==
LOC: ER 08:25
DX: O09.291 Supervision of pregnancy with other poor reproductive or obstetric history, first trimester (principal); O26.891 Other specified pregnancy related conditions, first trimester; R10.20 Pelvic and perineal pain unspecified side; E03.9 Hypothyroidism, unspecified; Z98.890 Other specified postprocedural states; Z3A.01 Less than 8 weeks gestation of pregnancy; Z90.49 Acquired absence of other specified parts of digestive tract
CPT/HCPCS: 36415; 76801; 76817; 80048; 84702; 85025